=== PATIENT | male | born 1980 | race Caucasian/White ===

== ENCOUNTER 2020-10-07 11:17 | Emergency (ER) | payer MEDICAID, SELFPAY ==
[2020-10-07 11:54] VITALS: BP 144/106; PULSE 82; RESP 16; TEMP 36.2; O2SAT 97; BMI 38.0
[2020-10-07 12:04] VITALS: O2SAT 96
--- NOTE | 2020-10-07 12:04 | W.ED.EAR ---
HPI - Ear Problem General: Chief complaint: Ear Stated complaint: BLOOD COMING FROM R EAR Time Seen by Provider: 10/07/20 11:22 History of Present Illness: HPI Narrative: Patient is a 40-year-old male comes to the ED with right ear complaint. Patient says he is having some mild pain in right ear along with blood and purulent drainage. Patient said he has been dealing with ear infections in the right ear for the past year. Approximately 3 weeks ago he saw his doctor and was put on a oral antibiotic and some eardrops. Patient says his symptoms improved some, but have not resolved. His last dose of antibiotics was approximately 2 weeks ago and he states that a week ago he started having purulent and bloody drainage on the right ear. Associated symptoms: Reports ear or mastoid pain (right); Denies fever(s), headache(s) or neck pain Review of Systems Const: Denies: fever(s), chills or fatigue Eyes: Denies: change in vision or eye discomfort ENMT: Reports: ear or mastoid pain (right) and ear discharge (right); Denies: throat pain, odynophagia, nasal discharge or nasal congestion Card: Denies: chest pain, palpitations, edema, swelling of feet/ankles, dyspnea on exertion or orthopnea Resp: Denies: dyspnea, productive cough or non-productive cough GI: Denies: abdominal pain, nausea, vomiting, diarrhea, constipation or hematochezia : Denies: flank pain, difficulty urinating, dysuria or hematuria Musc: Denies: neck pain, back pain or extremity swelling Skin/Breast: Denies: rash or new lesions Neuro: Denies: headache(s), numbness in extremities or weakness in extremities Physical Exam Const: COMMON NORMALS: no acute distress, patient oriented x3 and alert GENERAL APPEARANCE: cooperative and comfortable HENMT: COMMON NORMALS: normocephalic HEAD & SCALP: normocephalic EXTERNAL AUDITORY CANAL: Abnormal EAC present EAC laterality: right Details: erythema, edema and otic discharge Details: bloody and purulent discharge TYMPANIC MEMBRANE: TM normal on the left and TM abnormal TM laterality: right Details: bulging and fluid behind TM MOUTH: Normal oral and palatal mucosa present THROAT: posterior oropharynx normal and uvula midline Neck/C-Spine: COMMON NORMALS: supple GENERAL: Yes normal visual inspection Resp: COMMON NORMALS: normal respiratory effort, No retractions, No use of accessory muscles and clear to auscultation bilaterally AUSCULTATION: clear to auscultation bilaterally Cardio: COMMON NORMALS: regular rate, regular rhythm, S1 normal heart sound present, S2 normal heart sound present, No gallops present (Cardio), No clicks present (Cardio), No murmurs present (Cardio) and Peripheral pulses 2+ throughout RATE: regular rate RHYTHM: regular rhythm HEART SOUNDS: S1 normal heart sound present and S2 normal heart sound present PERIPHERAL PULSES: Peripheral pulses 2+ throughout GI: COMMON NORMALS: Normal to inspection, nondistended, normoactive bowel sounds present, Soft to palpation, non-tender and no masses PALPATION: Yes Soft to palpation : COMMON NORMALS: Yes no CVA tenderness BLADDER/KIDNEY EXAM: Yes no CVA tenderness Back/Pelvis: COMMON NORMALS: no CVA tenderness Extremity: COMMON NORMALS: normal to inspection Neuro: COMMON NORMALS: patient oriented x3 and moves all extremities SENSORIUM/ORIENTATION: Yes alert Skin: GENERAL SKIN EXAM: dry skin Course Vital Signs: Vital signs: Vital Signs Temperature 97.1 F L 10/07/20 11:54 Pulse Rate 82 10/07/20 11:54 Respiratory Rate 16 10/07/20 11:54 Blood Pressure 144/106 10/07/20 11:54 Pulse Oximetry 96 10/07/20 12:04 MDM - Ear MDM Narrative: Medical decision making narrative: Patient is a 40-year-old male comes to the ED with right ear pain and drainage. Patient says he has been struggling with right ear infections over the past year. He currently has bloody and purulent drainage from right ear. Patient diagnosed with otitis externa and otitis media and sent home with prescriptions for Ciprodex eardrops and cefdinir. I placed an order with case management for patient to be referred to an ENT for further evaluation. Discharge Plan Discharge Patient Disposition: Home Clinical Impression: Otitis externa Qualifiers: Otitis externa type: swimmer's ear Chronicity: acute Laterality: right Qualified Code(s): H60.331 - Swimmer's ear, right ear Otitis media Qualifiers: Otitis media type: suppurative Chronicity: acute Laterality: right Recurrence: recurrent Spontaneous tympanic membrane rupture: without spontaneous rupture Qualified Code(s): H66.004 - Acute suppurative otitis media without spontaneous rupture of ear drum, recurrent, right ear Condition: Stable Prescriptions: New Ciprodex 0.3-0.1 % drops,suspension 4 drp otic (ear) BID 7 Days Qty: 7.5 RF: 0 cefdinir 300 mg capsule 300 mg PO BID 10 Days Qty: 20 RF: 0 Discharge Orders: Discharge ED (Routine); Ordered 10/07/20 Ordered By: Vasile Sarabia Discharge Diet: Regular Discharge Activity: Resume usual activity Patient Instructions: Otitis Externa (ED), Otitis Media (ED) Activity Restrictions/Additional Instructions: Follow-up with medical provider as directed. Case management should be contacting you in the next several days to set up an appointment with the ENT specialist. Take medications as prescribed. Return to the ER or your medical provider if condition worsens. Please read and understand discharge instructions. Thank you for choosing [facility] for your healthcare needs today. Please realize this is an emergency room and that we are providing you with a medical screening exam and this may not be complete and all inclusive of all the testing and or work up that you may need to determine your ailment or severity of your illness. It is very important that you follow up as instructed or that you return to the Emergency Department should you have concerns or if your condition changes or worsens in any way. Coding Level of Care Code ED Mail Rider for Sherley Fisher Exam Comprehensive
--- NOTE | 2020-10-10 13:16 | DCPLANNER ---
manager field had message to schedule a follow up appointment for patient with ENT for chronic otitis media. manager field emailed patients information to Mckenna Avilez and Leigh at [facility], ENT clinic. Patients information will be printed and reviewed. Clinic will call patient with appointment information.
--- NOTE | 2020-10-12 07:50 | DCPLANNER ---
Patient has a follow up appointment scheduled for Friday, October 16, 2020 at 11;[address] Chand at ENT clinic. Clinic will call patient with appointment information.
--- NOTE | 2020-11-02 08:14 | DCPLANNER ---
Patient had an appointment scheduled for 10.16.20 with ENT - appointment was rescheduled.
== END 2020-10-07 12:27 | disposition home or self-care (01) ==
PROVIDERS: Emergency Provider Physician Assistant
DX: H60.331 Swimmer's ear, right ear (principal); H66.004 Acute suppurative otitis media without spontaneous rupture of ear drum, recurrent, right ear
CPT/HCPCS: 99282

== ENCOUNTER 2023-08-01 00:10 | Emergency (ER) | payer MEDICAID, SELFPAY ==
[2023-08-01 00:12] VITALS: BP 152/92; PULSE 100; RESP 16; TEMP 36.7; O2SAT 98
--- NOTE | 2023-08-01 00:25 | XRR_ITS ---
PROCEDURE INFORMATION: Exam: XR Abdomen Exam date and time: 08/01/2023 12:35 AM Age: 43 years old Clinical indication: Constipation TECHNIQUE: Imaging protocol: Radiologic exam of the abdomen. Views: Frontal supine view of the abdomen. 1 View. COMPARISON: No relevant prior studies available. FINDINGS: Gastrointestinal tract: No dilated bowel to suggest obstruction. Moderate amount of stool suspected throughout the colon. Bones/joints: No significant acute finding. Soft tissues: Evaluation is somewhat limited by patient body habitus. XR/XR abdomen 1V* [id number] IMPRESSION: 1. Nonspecific abdomen, no evidence of obstruction. 2. Other details discussed above.
[2023-08-01 00:57] LABS: Basophils # 0.1 10^3/uL (0.0-0.1); Basophils % 0.8 %; Eosinophils # 0.3 10^3/uL (0.0-0.8); Eosinophils % 2.4 %; Hematocrit 43.6 % (37-53); Lymphocytes # 3.8 10^3/uL (0.8-4.8); Lymphocytes % 27.7 %; Mean Corpuscular HGB Conc 33.5 g/dL (30-55); Mean Corpuscular Hemoglobin 29.7 pg (27-33); Mean Corpuscular Volume 88.8 fl (82-101); Mean Platelet Volume 8.6 fL (7.4-10.4); Monocytes % 7.3 %; Neutrophils # 8.35 10^3/uL (1.8-7.7); Neutrophils % 61.4 %; Nucleated Red Blood Cells % 0 %; Platelet Count 301 10^3/cmm (157-399); Red Blood Count 4.91 10^6/uL (3.85-5.65); White Blood Count 13.58 10^3/uL (3.29-11.43)
[2023-08-01 01:10] LABS: INR 0.89 (0.8-1.2)
[2023-08-01 01:14] LABS: Alanine Aminotransferase 19 U/L (0-41); Albumin Level 3.9 g/dL (3.5-5.2); Alkaline Phosphatase 89 U/L (40-130); Anion Gap 13.7 (5-19); Aspartate Amino Transferase 13 U/L (0-40); Blood Urea Nitrogen 5 mg/dL (6-20); Calcium 8.9 mg/dL (8.5-10.5); Carbon Dioxide 26 mmol/L (22-29); Chloride 102 mmol/L (98-107); Creatinine Clr Calc Pharmacy 198.2392; Globulin 2.8 g/dL (1.3-4.6); Glomerular Filtration Rate 122.5 mL/min (90-130); Glucose 106 mg/dL (65-115); Osmolality Calculated 284 mOsm/kg (285-295); Potassium 3.7 mmol/L (3.5-5.1); Sodium 138 mmol/L (136-145); Total Bilirubin 0.3 mg/dL (0.15-1.2); Total Protein 6.7 g/dL (6.6-8.7)
--- NOTE | 2023-08-01 01:19 | W.ED.GIBLEED ---
HPI - GI Bleed General: Chief complaint: GI Bleed Stated complaint: blood in stool Time Seen by Provider: 08/01/23 00:24 History of Present Illness: Patient presents to the ER with complaints of blood in the stool from hemorrhoids. Patient's been constipated for the better part of a month off and on. Patient is doing daily MiraLAX which she is only doing 1 capful. Patient is also use an [id number] hemorrhoidal cream. Patient says these both helped a little bit but not enough. PFSH ED PFSH: Social History Smoking and tobacco/nicotine status: current every day tobacco/nicotine user cigarettes Packs smoked per day: 0.5 Years cigarettes smoked: 30 Physical Exam Const: COMMON NORMALS: no acute distress, average body habitus, patient oriented x3, no limitations, healthy appearing, alert and well nourished HENMT: COMMON NORMALS: normocephalic, atraumatic, hearing grossly normal bilaterally, external ears normal, Normal external nose present, moist oral mucous membranes and oropharynx normal HEAD & SCALP: normocephalic and atraumatic NOSE: Normal external nose present EXTERNAL EAR: Yes external ears normal Neck/C-Spine: COMMON NORMALS: no JVD Chest: COMMONS NORMALS: normal inspection of the chest and normal palpation of entire chest wall Resp: COMMON NORMALS: normal respiratory effort, No retractions, No use of accessory muscles and clear to auscultation bilaterally AUSCULTATION: clear to auscultation bilaterally Cardio: COMMON NORMALS: no JVD, regular rate, regular rhythm, S1 normal heart sound present, S2 normal heart sound present, No gallops present (Cardio), No clicks present (Cardio), No murmurs present (Cardio) and No rub (Cardio) RATE: regular rate RHYTHM: regular rhythm HEART SOUNDS: S1 normal heart sound present and S2 normal heart sound present GI: COMMON NORMALS: Normal to inspection, nondistended, normoactive bowel sounds present, Soft to palpation, non-tender, No hepatosplenomegaly present and no masses PALPATION: Yes Soft to palpation and Yes No hepatosplenomegaly present Neuro: COMMON NORMALS: patient oriented x3 SENSORIUM/ORIENTATION: Yes alert Course Vital Signs: Vital signs: Vital Signs Temperature 98.0 F 08/01/23 00:12 Pulse Rate 100 08/01/23 00:12 Respiratory Rate 16 08/01/23 00:12 Blood Pressure 152/92 08/01/23 00:12 Pulse Oximetry 98 08/01/23 00:12 Oxygen Delivery Me thod Room Air 08/01/23 00:12 MDM - GI Bleed Medical Decision Making Lab work was obtained as well as x-ray all which are essentially nonspecific, patient did have some blood in his urine which she says is chronic. We had a long talk about IBS and constipation patient will increase his dose of MiraLAX and push fluids. Patient will follow-up with his PCP and await the GI referral that they are doing. Differential Diagnosis Likely hemorrhoids and hematochezia; Unlikely infectious diarrhea, esophageal varices, gastritis, Laila-Yan syndrome, Upper gastrointestinal hemorrhage, Lower gastrointestinal hemorrhage, melena or anal fissure Medical Records I reviewed the patient's medical records. Lab Data 08/01/23 00:53 08/01/23 00:53 Radiology Impressions Abdomen X-Ray 08/01/23 00:25 IMPRESSION: 1. Nonspecific abdomen, no evidence of obstruction. 2. Other details discussed above. Laboratory Results WBC 13.58 10^3/uL (3.29-11.43) H 08/01/23 00:53 RBC 4.91 10^6/uL (3.85-5.65) 08/01/23 00:53 Hgb 14.60 g/dL (11.27-16.99) 08/01/23 00:53 Hct 43.6 % (37-53) 08/01/23 00:53 MCV 88.8 fl (82-101) 08/01/23 00:53 MCH 29.7 pg (27-33) 08/01/23 00:53 MCHC 33.5 g/dL (30-55) 08/01/23 00:53 RDW 13.0 % (12.1-15.1) 08/01/23 00:53 Plt Count 301 10^3/cmm (157-399) 08/01/23 00:53 MPV 8.6 fL (7.4-10.4) 08/01/23 00:53 Neut % (Auto) 61.4 % 08/01/23 00:53 Lymph % (Auto) 27.7 % 08/01/23 00:53 [place] % (Auto) 7.3 % 08/01/23 00:53 Eos % (Auto) 2.4 % 08/01/23 00:53 Baso % (Auto) 0.8 % 08/01/23 00:53 Neut # (Auto) 8.35 10^3/uL (1.8-7.7) H 08/01/23 00:53 Lymph # (Auto) 3.8 10^3/uL (0.8-4.8) 08/01/23 00:53 [place] # (Auto) 1.0 10^3/uL (0.2-0.9) H 08/01/23 00:53 Eos # (Auto) 0.3 10^3/uL (0.0-0.8) 08/01/23 00:53 Baso # (Auto) 0.1 10^3/uL (0.0-0.1) 08/01/23 00:53 Nucleated RBC % (auto) 0 % 08/01/23 00:53 Nucleated RBCs # 0.0 /100WBC 08/01/23 00:53 PT 12.30 SECONDS (12.1-14.9) 08/01/23 00:53 INR 0.89 (0.8-1.2) 08/01/23 00:53 Sodium 138 mmol/L (136-145) 08/01/23 00:53 Potassium 3.7 mmol/L (3.5-5.1) 08/01/23 00:53 Chloride 102 mmol/L (98-107) 08/01/23 00:53 Carbon Dioxide 26 mmol/L (22-29) 08/01/23 00:53 Anion Gap 13.7 (5-19) 08/01/23 00:53 BUN 5 mg/dL (6-20) L 08/01/23 00:53 Creatinine 0.7 mg/dL (0.7-1.2) 08/01/23 00:53 GFR Calculation 122.5 mL/min (90-130) 08/01/23 00:53 Glucose 106 mg/dL (65-115) 08/01/23 00:53 Calculated Osmolality 284 mOsm/kg (285-295) L 08/01/23 00:53 Calcium 8.9 mg/dL (8.5-10.5) 08/01/23 00:53 Total Bilirubin 0.3 mg/dL (0.15-1.2) 08/01/23 00:53 AST 13 U/L (0-40) 08/01/23 00:53 ALT 19 U/L (0-41) 08/01/23 00:53 Alkaline Phosphatase 89 U/L (40-130) 08/01/23 00:53 Total Protein 6.7 g/dL (6.6-8.7) 08/01/23 00:53 Albumin 3.9 g/dL (3.5-5.2) 08/01/23 00:53 Globulin 2.8 g/dL (1.3-4.6) 08/01/23 00:53 Urine Color Yellow (Yellow) 08/01/23 01:25 Urine Appearance Clear (CLEAR) 08/01/23 01:25 Urine pH 5 (5-7) 08/01/23 01:25 Ur Specific [place] 1.010 (1.005-1.030) 08/01/23 01:25 Urine Protein Neg (Negative) 08/01/23 01:25 Urine Glucose (UA) Norm (Normal) 08/01/23 01:25 Urine Ketones Negative (Negative) 08/01/23 01:25 Urine Blood 2+ (Negative) H 08/01/23 01:25 Urine Nitrate Negative (Negative) 08/01/23 01:25 Urine Bilirubin Neg (Negative) 08/01/23 01:25 Urine Urobilinogen Neg mg/dL (Negative) 08/01/23 01:25 Ur Leukocyte Esterase Negative (Negative) 08/01/23 01:25 Urine RBC 0-4 /hpf (0-2) H 08/01/23 01:25 Urine WBC None /hpf (0-5) 08/01/23 01:25 Ur Squamous Epith Cells 0-4 /hpf (0-5) H 08/01/23 01:25 Amorphous Sediment Not Reportable 08/01/23 01:25 Urine Bacteria None /hpf (NONE) 08/01/23 01:25 Urine Mucus 1+ /hpf 08/01/23 01:25 All radiology interpretation(s) finalized by discharge Discharge Plan Discharge Patient Disposition: Home Clinical Impression: Irritable bowel syndrome with constipation, External hemorrhoid Condition: Stable Prescriptions: No Action polyethylene glycol 3350 [Miralax] 17 gram/dose powder 17 g PO DAILY PRN (Reason: constipation) Qty: 510 0RF ibuprofen 600 mg tablet 600 mg PO Q8H PRN (Reason: pain) Qty: 30 0RF Discharge Orders: Discharge ED (Routine); Ordered 08/01/23 Ordered By: Syed Warren Referrals: Roselyn Quesada, [employer] [Primary Care Provider] - 1 week Patient Instructions: Irritable Bowel Syndrome (DC), Constipation (ED), Rectal Bleeding (ED) Activity Restrictions/Additional Instructions: Please increase your MiraLAX until results. Please continue the [id number] hemorrhoidal preparations. Await your family practice doctor's referral for GI doctor. Follow-up with him in the next 7 to 10 days or sooner as needed. Coding Level of Care Code ED [facility] for Sherley Fisher
[2023-08-01 01:42] LABS: Add Urine Culture? No; Add Urine Microscopic? YES; Bilirubin Urine Neg (Negative); Blood Urine 2+ (Negative); Glucose Urine UA Norm (Normal); Ketones Urine Negative (Negative); Leukocyte Esterase Urine Negative (Negative); Mucus Urine 1+ /hpf; Nitrate Urine Negative (Negative); Protein Urine Neg (Negative); RBC Urine 0-4 /hpf (0-2); Squamous Epithelial Cell Urine 0-4 /hpf (0-5); Urine Appearance Clear (CLEAR); Urine Color Yellow (Yellow); Urobilinogen Urine Neg (Negative); pH Urine 5 (5-7)
== END 2023-08-01 02:10 | disposition home or self-care (01) ==
PROVIDERS: Emergency Provider Emergency Medicine; PCP Nurse Practitioner Family
DX: K58.1 Irritable bowel syndrome with constipation (principal); K64.4 Residual hemorrhoidal skin tags; F17.210 Nicotine dependence, cigarettes, uncomplicated
CPT/HCPCS: 74018; 80053; 81001; 85025; 85610; 99284